=== PATIENT | female | born 1980 | race African-American/Black ===

== ENCOUNTER 2017-03-21 08:09 | Emergency (ER) | payer SELFPAY ==
[~2017-03-21 08:09] MED LIST: CIPR-9 PO; HYDR-3516 PO; LEXA10TA PO; TOPA25TA8 PO
[2017-03-21 08:11] VITALS: BP 122/73; PULSE 59; RESP 18; TEMP 98.4; O2SAT 99
[2017-03-21] MEDS ORDERED: LIDOCAINE 1%/EPINEPHrine 1:100,000 SOLN 20 ML VIAL INFIL ONE (08:30)
--- NOTE | 2017-03-21 08:41 | PD ---
HPI Chief Complaint: Skin Problem Time Seen by Provider: 08:15 Travel History International Travel<30 days: No Contact w/Intl Traveler<30days: No Traveled to known affect area: No History of Present Illness HPI 37-year-old Afro[place] female presents the emergency Department with painful swollen area to the left radial wrist which is gotten worse in the past several days. Patient has history of recurrent abscesses and MRSA. Patient denies IV drug abuse, but medical history shows history of overdose. Patient denies significant fever but has had chills and not feeling well in the past 24 hours. Patient's pain is 8 out of 10. Patient has history of MRSA. She has no known drug allergies. PFSH Past Medical History Asthma: No Blood Disorders: No Anxiety: Yes Depression: Yes Heart Rhythm Problems: No Cancer: No Cardiovascular Problems: No High Cholesterol: No Chemotherapy: No Chest Pain: No Congestive Heart Failure: No COPD: No Diabetes: No Diminished Hearing: No Endocrine: No Gastrointestinal Disorders: No Genitourinary: No Headaches: Yes Immune Disorder: No Musculoskeletal: No Neurologic: Yes (migraines and seizures) Psychiatric: Yes Reproductive: No Respiratory: No Migraines: Yes Radiation Therapy: No Seizures: Yes (LAST SEIZURE 05/26) Sleep Apnea: No Thyroid Disease: No : 1 Para: 1 Miscarriage: 0 : 0 Past Surgical History Section: No Joint Replacement: No Other Surgery: Yes (BREAST REDUCTION 2003, SINUS SURGERY 2002) Social History Alcohol Use: Yes (reports having wine this evening.) Tobacco Use: Yes (1/2 PPD) Substance Use: No Allergies-Medications (Allergen,Severity, Reaction): Coded Allergies: *MDRO Multi-Drug Resistant Organism (Unverified Allergy, Unknown, 08/04/16 ) MRSA (neck wound-07/12/14) MRSA PCR screen POSITIVE 08/03/16 Reported Meds & Prescriptions Reported Meds & Active Scripts Active Ibuprofen 600 Mg Tab 600 Mg PO Q6H PRN Bactrim DS (Sulfamethoxazole-Trimethoprim) 800-160 Mg Tab 1 Tab PO BID Reported Topamax (Topiramate) 25 Mg Tab 25 Mg PO BID Review of Systems Except as stated in HPI: all other systems reviewed are Neg General / Constitutional: Positive: Chills, No: Fever Eyes: No: Visual changes HENT: No: Headaches Cardiovascular: No: Chest Pain or Discomfort Respiratory: No: Shortness of Breath Gastrointestinal: No: Abdominal Pain Genitourinary: No: Dysuria Musculoskeletal: No: Pain Skin: Positive Lesions (see history present illness), No Rash Neurologic: No: Weakness Psychiatric: No: Depression Endocrine: No: Polydipsia Hematologic/Lymphatic: No: Easy Bruising Physical Exam Narrative GENERAL: Patient appears in mild distress. SKIN: Warm and dry. Normal color. Normal turgor. There is no indurated raised obvious abscess to the lateral radial wrist consistent with abscess. There is mild erythema. There is no lymphangitis or streaking. There is no pointing or spontaneous drainage. The area measures 1 cm x 3 cm oblong fashion. HEAD: Atraumatic. Normocephalic. EYES: Pupils equal and round. No scleral icterus. No injection or drainage. ENT: No nasal bleeding or discharge. Mucous membranes pink and moist. Pharynx is clear. Airway is patent NECK: Trachea midline. Supple and nontender. CARDIOVASCULAR: Regular rate and rhythm. RESPIRATORY: No accessory muscle use. Clear to auscultation. Breath sounds equal bilaterally. MUSCULOSKELETAL: Extremities without clubbing, cyanosis, or edema. No obvious deformities. NEUROLOGICAL: Awake and alert. No obvious cranial nerve deficits. Motor grossly within normal limits. Five out of 5 muscle strength in the arms and legs. Normal speech. PSYCHIATRIC: Appropriate mood and affect; insight and judgment normal. Data Data Last Documented VS Vital Signs Date Time Temp Pulse Resp B/P Pulse Ox O2 Delivery O2 Flow Rate FiO2 03/21/17 08:11 98.4 59 18 122/73 99 Orders Lidocai-Epi 1%-1:100,000 Inj (Xylocaine- (03/21/17 08:30) Wound Culture And Gram Stain (03/21/17 08:38) [facility] Medical Decision Making Medical Screen Exam Complete: Yes Emergency Medical Condition: Yes Medical Record Reviewed: Yes Differential Diagnosis Left wrist cellulitis. Left wrist abscess. MRSA. Narrative Course Patient is medically stable at time of exam. I&D of abscess is performed on the left wrist. Culture is sent to the lab. Patient is treated with Bactrim DS twice a day 10 days. Patient is given ibuprofen 600 mg 4 times a day #40. Patient to return in 2 days for wound check and packing removal. Procedures Procedure Narrative After the risks and benefits were discussed the following procedure was performed: INCISION AND DRAINAGE OF ABSCESS: The area was prepped and was sterilely draped. A subcutaneous wheal of 1 % Xylocaine with epi with a total number 2.5 mL was used to anesthetize the area. The area was properly anesthetized. A number 11 scalpel was used to make a 0.5-cm incision across the area of the abscess. Cultures were obtained. The abscess was drained an irrigated with normal saline. Quarter inch iodoform packing was placed in the wound. Sterile dressing applied. Patient advised to have packing removed in two days. Diagnosis Primary Impression: Abscess Referrals: [facility] Patient Instructions: Abscess Incision and Drainage (ED), General Instructions Departure Forms: Work Release Special Instructions: Limited use of left wrist until cleared medically. Must keep dressing clean and dry. Additional Instructions: Patient is medically stable at time of exam. I&D of abscess is performed on the left wrist. Culture is sent to the lab. Patient is treated with Bactrim DS twice a day 10 days. Patient is given ibuprofen 600 mg 4 times a day #40. Patient to return in 2 days for wound check and packing removal. Med/Other Pt SpecificInfo: Prescription(s) given Scripts Ibuprofen 600 Mg Sxl500 Mg PO Q6H PRN (Pain/Inflammation) #40 TAB Prov:Jcarlos Carpio MD 03/21/17 Sulfamethoxazole-Trimethoprim (Bactrim DS)800-160 Mg Tab1 Tab PO BID #20 TAB Prov:Jcarlos Carpio MD 03/21/17 Disposition: 01 DISCHARGE HOME Condition: Stable Otto Haley Mar 21, 2017 08:41
[2017-03-21] MEDS ORDERED: IBUP-232 PO (08:42)
[2017-03-21] MEDS ORDERED: BACT800T5 PO (08:42)
[2017-03-21] MEDS ORDERED: ACETAMINOPHEN 500 MG CPLT PO ONE (09:00)
[2017-03-21] MEDS ORDERED: IBUPROFEN 600 MG TAB PO ONE (09:00)
== END 2017-03-21 09:08 | disposition home or self-care (01) ==
LOC: NEPK 08:09
DX: L02.414 Cutaneous abscess of left upper limb (principal); B96.3 Hemophilus influenzae [H. influenzae] as the cause of diseases classified elsewhere; B96.89 Other specified bacterial agents as the cause of diseases classified elsewhere
CPT/HCPCS: 10060; 87070; 87077; 87185; 87186

== ENCOUNTER 2017-10-11 23:57 | Emergency (ER) | payer SELFPAY ==
[~2017-10-11] VITALS: Ht 170.2 cm; Wt 66.0 kg
[~2017-10-11 23:57] MED LIST changes: +BACT800T5 PO; -CIPR-9 PO; -HYDR-3516 PO; +IBUP-232 PO; -LEXA10TA PO; -TOPA25TA8 PO; +TOPI25 PO
[2017-10-12] VITALS: BP 126/60; PULSE 100; RESP 16; TEMP 98.4; O2SAT 100
[2017-10-12] MEDS ORDERED: BACT800T5 PO (00:35)
[2017-10-12] MEDS ORDERED: CEPH-460 PO (00:35)
[2017-10-12] MEDS ORDERED: SULFAMETHOXAZOLE-TRIMETHOPRIM DS 800-160 MG TAB PO ONE (00:45)
[2017-10-12] MEDS ORDERED: CEPHALEXIN MONOHYDRATE 500 MG CAP PO ONE (00:45)
--- NOTE | 2017-10-12 00:49 | PD ---
HPI Chief Complaint: Lump, Cyst, Hernia Time Seen by Provider: 00:31 Travel History International Travel<30 days: No Contact w/Intl Traveler<30days: No Traveled to known affect area: No History of Present Illness HPI 37-year-old black female presents to emergency department with complains of a abscess to her left wrist over last few days. She states that she's had a history of abscesses in the past. She has a history of IV substance abuse although she denies any recent use. She denies any fever or chills. No numbness, tingling or weakness. Symptoms are mild. No alleviating factors. Exacerbated by IV drug abuse PFSH Past Medical History Asthma: No Blood Disorders: No Anxiety: Yes Depression: Yes Diminished Hearing: No Headaches: Yes Neurologic: Yes Psychiatric: Yes Migraines: Yes Seizures: Yes (LAST SEIZURE 05/26) Tetanus Vaccination: < 5 Years ?: Not : 1 Para: 1 Miscarriage: 0 : 0 Past Surgical History Section: No Cholecystectomy: Yes Joint Replacement: No Other Surgery: Yes (breast reduction sx and sinue surgery) Social History Alcohol Use: No Tobacco Use: Yes (1PPD) Substance Use: No Allergies-Medications (Allergen,Severity, Reaction): Coded Allergies: *MDRO Multi-Drug Resistant Organism (Unverified Allergy, Unknown, 10/12/17) MRSA (neck wound-07/12/14) MRSA PCR screen POSITIVE 08/03/16 Reported Meds & Prescriptions Reported Meds & Active Scripts Active Keflex (Cephalexin) 500 Mg Cap 500 Mg PO Q6H 10 Days Bactrim DS (Sulfamethoxazole-Trimethoprim) 800-160 Mg Tab 1 Tab PO BID Ibuprofen 600 Mg Tab 600 Mg PO Q6H PRN Bactrim DS (Sulfamethoxazole-Trimethoprim) 800-160 Mg Tab 1 Tab PO BID Reported Topamax (Topiramate) 25 Mg Tab 25 Mg PO BID Review of Systems Except as stated in HPI: all other systems reviewed are Neg Musculoskeletal: Positive: Pain Skin: Positive Rash, Positive Lumps Physical Exam Narrative GENERAL: This is a well-nourished, well-developed patient, in no apparent distress. SKIN: 1.5 x 1.5 cm tender nodular lesion over the dorsal radial wrist. It is tender. There is no fluctuance or pointing. I suspect that this is a superficial abscess and not a ganglion cyst. It is just before the wrist and not over the joint. HEAD: Atraumatic. Normocephalic. EYES: PERRL, EOMI, no discharge or injection. No scleral icterus. EARS: Clear NOSE: Nasal turbinates appear normal. THROAT: Mucosa pink and moist. Airway patent. NECK: Trachea midline. supple, moves head freely. LUNGS: Clear to auscultation. CV: Regular in rhythm. ABDOMEN: Soft nontender. EXT: No clubbing cyanosis or edema. Data Data Last Documented VS Vital Signs Date Time Temp Pulse Resp B/P (MAP) Pulse Ox O2 Delivery O2 Flow Rate FiO2 10/12/17 00:00 98.4 100 16 126/60 (82) 100 Room Air Orders Orders Ed Discharge Order (10/12/17 00:33) Cephalexin (Keflex) (10/12/17 00:45) Sulfamet-Trimeth Ds 800-160 Mg (Bactrim (10/12/17 00:45) MDM Medical Decision Making Medical Screen Exam Complete: Yes Emergency Medical Condition: Yes Medical Record Reviewed: Yes Differential Diagnosis MDM: High Differential diagnoses: Abscess, folliculitis, cellulitis, lymphangitis, abrasion, contact dermatitis Narrative Course A needle aspiration has been performed. Patient's given Bactrim DS and Keflex 500 mg by mouth. Procedures Procedure Narrative Needle aspiration left dorsal wrist abscess: The skin is prepped with Hibiclens. The skin is anesthetized using 1% lidocaine. After adequate anesthesia and 18-gauge needle is used to withdrawal 2 cc of bloody pus. Dressings applied. Patient tolerated procedure well without complications. Diagnosis Primary Impression: left wrist abscess Patient Instructions: General Instructions Additional Instructions: Rest. Elevation. keep clean and dry. Warm compresses. Daily wound care with soap, water and Neosporin. Three Advil every 6 hours. Bactrim DS and Keflex.. Follow-up with a primary care doctor in 3-5 days. Return to the ER for any problems. Med/Other Pt SpecificInfo: Prescription(s) given Scripts Cephalexin (Keflex) 500 Mg Cap 500 MG PO Q6H for Infection for 10 Days, #40 CAP 0 Refills Prov: Selvin Brown MD 10/12/17 Sulfamethoxazole-Trimethoprim (Bactrim DS) 800-160 Mg Tab 1 TAB PO BID for Infection, #20 TAB 0 Refills Prov: Selvin Brown MD 10/12/17 Disposition: 01 DISCHARGE HOME Condition: Stable Conor Ellis Oct 12, 2017 00:49
== END 2017-10-12 01:16 | disposition home or self-care (01) ==
LOC: NEPD 23:57
DX: L02.414 Cutaneous abscess of left upper limb (principal)
CPT/HCPCS: 10160; 99283

== ENCOUNTER 2017-11-16 20:51 | Emergency (ER) | payer SELFPAY ==
[~2017-11-16] VITALS: Ht 167.6 cm; Wt 66.0 kg
[2017-11-16 22:07] VITALS: BP 134/71; PULSE 106; RESP 16; TEMP 98.4; O2SAT 100
[2017-11-16 22:46] LABS: BACTERIA, URINE OCC /hpf; BILIRUBIN, URINE NEG (NEG); BLOOD, URINE LARGE (NEG); GLUCOSE,URINE NEG (NEG); HYALINE CAST, URINE 4 /lpf (RARE); KETONE, URINE NEG (NEG); MUCUS URINE MANY /lpf (OCC); NITRITE,URINE NEG (NEG); PH, URINE 5.5 (5.0-8.5); SQUAMOUS EPITHELIAL CELL URINE 2 /hpf (0-5); URINE LEUKOCYTE ESTERASE LARGE (NEG); WHITE BLOOD CELL CLUMPS RARE
[2017-11-16 22:47] LABS: URINE COLOR LIGHT-RED (YELLW/STRAW)
--- NOTE | 2017-11-16 23:03 | PD ---
HPI Chief Complaint: Back/ Neck Pain or Injury Time Seen by Provider: 22:55 Travel History International Travel<30 days: No Contact w/Intl Traveler<30days: No Traveled to known affect area: No History of Present Illness HPI Is a 37-year-old woman who presents to the emergency department plan of left- sided flank pain is been ongoing for the past week or so, fairly constant with some waxing and waning episodes, so she with dark urine, nausea vomiting. No fevers or chills. A little bit of dysuria. No vaginal discharge. Also flares about 3 weeks ago was normal. She has no history of bladder infections, pyelonephritis, or ureterolithiasis. Although, she has been told in the past that she had kidney stones on CT scan, but is never passed any. She takes medicine for seizures. No other complaints. History Past Medical History Narrative Medical Seizures Tetanus Vaccination: > 5 Years Influenza Vaccination: Yes LMP: 10/20/17 : 1 Para: 1 Social History Alcohol Use: No Tobacco Use: Yes (08/22 PPD) Allergies-Medications (Allergen,Severity, Reaction): Coded Allergies: *MDRO Multi-Drug Resistant Organism (Unverified Allergy, Unknown, 10/12/17) MRSA (neck wound-07/12/14) MRSA PCR screen POSITIVE 08/03/16 Reported Meds & Prescriptions Reported Meds & Active Scripts Active Percocet (Oxycodone-Acetaminophen) 5-325 mg Tab 1-2 Tab PO Q6H PRN Naproxen 500 Mg Tab 500 Mg PO BID Ondansetron Odt 4 Mg Tab 4 Mg SL Q8HR PRN Keflex (Cephalexin) 500 Mg Cap 500 Mg PO Q8H Reported Topamax (Topiramate) 25 Mg Tab 25 Mg PO BID Review of Systems Except as stated in HPI: all other systems reviewed are Neg Physical Exam Narrative GENERAL: 37-year-old woman, appears uncomfortable but nontoxic. SKIN: Focused skin assessment warm/dry. HEAD: Atraumatic. Normocephalic. EYES: Pupils equal and round. No scleral icterus. No injection or drainage. ENT: No nasal bleeding or discharge. Mucous membranes pink and moist. NECK: Trachea midline. No JVD. CARDIOVASCULAR: Regular rate and rhythm. No murmur appreciated. RESPIRATORY: No accessory muscle use. Clear to auscultation. Breath sounds equal bilaterally. GASTROINTESTINAL: Abdomen soft. She has left-sided CVA tenderness to percussion , as well as some moderate left-sided tenderness to palpation. MUSCULOSKELETAL: No obvious deformities. No clubbing. No cyanosis. No edema. NEUROLOGICAL: Awake and alert. No obvious cranial nerve deficits. Motor grossly within normal limits. Normal speech. PSYCHIATRIC: Appropriate mood and affect; insight and judgment normal. Data Data Last Documented VS Vital Signs Date Time Temp Pulse Resp B/P (MAP) Pulse Ox O2 Delivery O2 Flow Rate FiO2 11/16/17 22:07 98.4 106 16 134/71 (92) 100 Orders Orders Urinalysis - C+S If Indicated (11/16/17 22:25) Ed Urine Pregnancytest Poc (11/16/17 22:25) Urine Culture (11/16/17 22:25) Ct Abd/Pel W/O Iv Contrast (11/16/17 ) Complete Blood Count With Diff (11/16/17 23:01) Comprehensive Metabolic Panel (11/16/17 23:01) Iv Access Insert/Monitor (11/16/17 23:01) Ketorolac Inj (Toradol Inj) (11/16/17 23:15) Ondansetron Inj (Zofran Inj) (11/16/17 23:15) Sodium Chlor 0.9% 1000 Ml Inj (Ns 1000 M (11/16/17 23:15) Ed Discharge Order (11/17/17 00:40) Ceftriaxone Inj (Rocephin Inj) (11/17/17 00:45) Labs Laboratory Tests Test 11/16/17 22:25 11/16/17 23:30 Urine Color LIGHT-RED Urine Turbidity CLOUDY Urine pH 5.5 Urine Specific [place] 1.020 Urine Protein 100 mg/dL Urine Glucose (UA) NEG mg/dL Urine Ketones NEG mg/dL Urine Occult Blood LARGE Urine Nitrite NEG Urine Bilirubin NEG Urine Urobilinogen LESS THAN 2.0 MG/DL Urine Leukocyte Esterase LARGE Urine RBC /hpf Urine WBC /hpf Urine WBC Clumps RARE Urine Squamous Epithelial Cells 2 /hpf Urine Bacteria OCC /hpf Urine Hyaline Casts 4 /lpf Urine Mucus MANY /lpf Microscopic Urinalysis Comment CULTURE INDICATED White Blood Count 8.6 TH/MM3 Red Blood Count 4.34 MIL/MM3 Hemoglobin 12.6 GM/DL Hematocrit 35.1 % Mean Corpuscular Volume 80.9 FL Mean Corpuscular Hemoglobin 29.2 PG Mean Corpuscular Hemoglobin Concent 36.0 % Red Cell Distribution Width 13.4 % Platelet Count 258 TH/MM3 Mean Platelet Volume 8.1 FL Neutrophils (%) (Auto) 59.8 % Lymphocytes (%) (Auto) 30.4 % Monocytes (%) (Auto) 7.6 % Eosinophils (%) (Auto) 1.9 % Basophils (%) (Auto) 0.3 % Neutrophils # (Auto) 5.1 TH/MM3 Lymphocytes # (Auto) 2.6 TH/MM3 Monocytes # (Auto) 0.7 TH/MM3 Eosinophils # (Auto) 0.2 TH/MM3 Basophils # (Auto) 0.0 TH/MM3 CBC Comment AUTO DIFF Differential Comment AUTO DIFF CONFIRMED Platelet Estimate NORMAL Platelet Morphology Comment NORMAL Red Cell Morphology Comment NORMAL Blood Urea Nitrogen 22 MG/DL Creatinine 0.91 MG/DL Random Glucose 82 MG/DL Total Protein 7.9 GM/DL Albumin 3.5 GM/DL Calcium Level 8.7 MG/DL Alkaline Phosphatase 65 U/L Aspartate Amino Transf (AST/SGOT) 19 U/L Alanine Aminotransferase (ALT/SGPT) 20 U/L Total Bilirubin 0.4 MG/DL Sodium Level 135 MEQ/L Potassium Level 3.7 MEQ/L Chloride Level 102 MEQ/L Carbon Dioxide Level 26.3 MEQ/L Anion Gap 7 MEQ/L Estimat Glomerular Filtration Rate 83 ML/MIN [facility] Medical Decision Making Medical Screen Exam Complete: Yes Emergency Medical Condition: Yes Interpretation(s) LABS: CBC is unremarkable. CMP is unremarkable. UA with innumerable red blood cells, innumerable white blood cells CT abdomen pelvis: Certain left renal pelvis is probably intermittently obstructing. Differential Diagnosis Renal lithiasis, UTI, kidney stones, enteritis, other Narrative Course Medical decision making Is a 37-year-old woman presents emerged department left-sided abdominal pain, she has tenderness and hematuria suggestive either pyelonephritis, or nephrolithiasis. Will check labs, urine, CT, will give Zofran Toradol IV fluids , reassess. FINAL: 37-year-old woman with a large renal stone that intermittently obstructing. No evidence of severe infection with fevers or leukocytosis however she does have a fair amount of pyuria. Will recommend IV antibiotics, outpatient follow-up with urology. Will placement to her referral. Diagnosis Primary Impression: Renal stone Patient Instructions: General Instructions Additional Instructions: Take antibiotics as prescribed. Take Naprosyn as needed for pain. Take Percocet as needed for severe pain. The Zofran as needed for nausea or vomiting. Follow-up with Dr. Alex at the first available appointment. Return to the emergency department for any worsening pain, any fevers, or any other new or worsening symptoms. Med/Other Pt SpecificInfo: Prescription(s) given Scripts Oxycodone-Acetaminophen (Percocet) 5-325 mg Tab 1-2 TAB PO Q6H Y for PAIN, #21 TAB 0 Refills Prov: Lencho Bautista MD 11/17/17 Naproxen (Naproxen) 500 Mg Tab 500 MG PO BID, #60 TAB 0 Refills Prov: Lencho Bautista MD 11/17/17 Ondansetron Odt (Ondansetron Odt) 4 Mg Tab 4 MG SL Q8HR Y for Nausea/Vomiting, #30 TAB 0 Refills Prov: Lencho Bautista MD 11/17/17 Cephalexin (Keflex) 500 Mg Cap 500 MG PO Q8H for Infection, #30 CAP 0 Refills Prov: Lencho Bautista MD 11/17/17 Disposition: 01 DISCHARGE HOME Condition: Stable Lencho Bautista MD Nov 16, 2017 23:03
[2017-11-16] MEDS ORDERED: KETOROLAC TROMETHAMINE 30 MG/ML (IVP) VIAL IV PUSH ONE (23:15)
[2017-11-16] MEDS ORDERED: ONDANSETRON HCL 4 MG/2 ML VIAL IV PUSH ONE (23:15)
[2017-11-16] MEDS ORDERED: SODIUM CHLOR 0.9% 1000 ML INJ 1,000 ML IV ONE (23:15)
--- NOTE | 2017-11-16 23:29 | RADRPT ---
EXAM DATE/TIME: 11/16/2017 23:15 [place] COMPARISON: CT ABDOMEN & PELVIS W/O CONTRAST, August 06, 2016, 12:03. INDICATIONS : Left flank pain. ORAL CONTRAST: No oral contrast ingested. RADIATION DOSE: 6.79 CTDIvol (mGy) MEDICAL HISTORY : None SURGICAL HISTORY : Cholecystectomy. ENCOUNTER: Initial ACUITY: 1 week PAIN SCALE: 7/10 LOCATION: Left flank TECHNIQUE: Volumetric scanning of the abdomen and pelvis was performed. Using automated exposure control and ad justment of the mA and/or kV according to patient size, radiation dose was kept as low as reasonably achievable to obtain optimal diagnostic quality images. DICOM format image data is available electro nically for review and comparison. FINDINGS: There is an 8 x 12 x 13 mm stone in the left renal pelvis. Mild to moderate hydronephrosis is present . No ureteral calculus or hydroureter. Noncontrast appearance of the right kidney within normal limit s. Antrum cholecystectomy. Noncontrast appearance of the liver, spleen, pancreas and adrenal glands with in normal limits. No obstruction or acute inflammatory changes of the gastrointestinal tract. No free fluid. CONCLUSION: Large stone in the left renal pelvis that is probably intermittently/paroxysmally obstructing. Dimitris Banuelos MD on November 16, 2017 at 23:25 Board Certified Radiologist. This report was verified electronically.
[2017-11-16 23:54] LABS: AUTOMATED NEUTROPHIL # 5.1 TH/MM3 (1.8-7.7); BASOPHIL % 0.3 % (0.0-2.0); EOSINOPHIL # 0.2 TH/MM3 (0-0.4); EOSINOPHIL % 1.9 % (0.0-4.0); HEMATOCRIT 35.1 % (35.0-46.0); HEMOGLOBIN 12.6 GM/DL (11.6-15.3); LYMPH % 30.4 % (9.0-44.0); LYMPHOCYTE # 2.6 TH/MM3 (1.0-4.8); MEAN CELL VOLUME 80.9 FL (80.0-100.0); MEAN CORPUSCULAR HEMOGLOBIN 29.2 PG (27.0-34.0); MEAN PLATELET VOLUME 8.1 FL (7.0-11.0); MONO % 7.6 % (0.0-8.0); MONOCYTE # 0.7 TH/MM3 (0-0.9); NEUT % 59.8 % (16.0-70.0); PLATELET COUNT 258 TH/MM3 (150-450); RED BLOOD COUNT 4.34 MIL/MM3 (4.00-5.30); RED CELL DISTRIBUTION WIDTH 13.4 % (11.6-17.2); WHITE BLOOD COUNT 8.6 TH/MM3 (4.0-11.0)
[2017-11-17 00:11] LABS: ALBUMIN 3.5 GM/DL (3.4-5.0); ALT (GPT) 20 U/L (10-53); AST (GOT) 19 U/L (15-37); BICARBONATE 26.3 MEQ/L (21.0-32.0); BLOOD UREA NITROGEN 22 MG/DL (7-18); CALCIUM 8.7 MG/DL (8.5-10.1); CHLORIDE 102 MEQ/L (98-107); CREATININE 0.91 MG/DL (0.50-1.00); GLOMERULAR FILTRATION RATE 83 ML/MIN (>89); GLUCOSE,RANDOM 82 MG/DL (74-106); SODIUM (NA) 135 MEQ/L (136-145)
[2017-11-17 00:13] LABS: ALKALINE PHOSPHATASE 65 U/L (45-117); TOTAL BILIRUBIN ADULT 0.4 MG/DL (0.2-1.0); TOTAL PROTEIN 7.9 GM/DL (6.4-8.2)
[2017-11-17] MEDS ORDERED: TOPI25 PO (00:21)
[2017-11-17] MEDS ORDERED: CEPH-460 PO (00:40)
[2017-11-17] MEDS ORDERED: NAPR500T2 PO (00:40)
[2017-11-17] MEDS ORDERED: ONDA4TAB7 SL (00:40)
[2017-11-17] MEDS ORDERED: PERC5TAB12 PO (00:40)
[2017-11-17] MEDS ORDERED: cefTRIAXone INJ 1,000 MG in SODIUM CHLORIDE 0.9% INJ 100 ML IV ONE (00:45)
[2017-11-17] MEDS ORDERED: oxyCODONE/ACETAMINOPHEN 5 MG/325 MG TAB PO ONE (01:15)
[2017-11-17] MEDS ORDERED: NAPROXEN 500 MG TAB PO ONE (01:15)
== END 2017-11-17 01:31 | disposition home or self-care (01) ==
LOC: NEPE 20:51
DX: N20.0 Calculus of kidney (principal); R11.2 Nausea with vomiting, unspecified; R30.0 Dysuria; B95.2 Enterococcus as the cause of diseases classified elsewhere; R56.9 Unspecified convulsions; F17.200 Nicotine dependence, unspecified, uncomplicated; Z79.899 Other long term (current) drug therapy
CPT/HCPCS: 74176; 80053; 81001; 84703; 85025; 87077; 87086; 87186; 96361; 96365; 96375; 99284; J0696; J1885; J2405; J7030

== ENCOUNTER 2018-01-11 10:36 | Emergency (ER) | payer SELFPAY ==
[~2018-01-11] VITALS: Ht 167.6 cm; Wt 70.2 kg
[~2018-01-11 10:36] MED LIST changes: -BACT800T5 PO; +CEPH-460 PO; -IBUP-232 PO; +NAPR500T2 PO; +ONDA4TAB7 SL; +PERC5TAB12 PO
[2018-01-11 10:45] VITALS: BP 145/68; PULSE 87; RESP 18; TEMP 98.5; O2SAT 99
[2018-01-11] MEDS ORDERED: SODIUM CHLOR 0.9% 1000 ML INJ 1,000 ML IV SCH (12:04)
--- NOTE | 2018-01-11 12:07 | PD ---
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 Patient states she was feeling better after she left her last month and then the pain somewhat returned. States started last night, left flank, no radiation, associated with blood in the urine. Patient states she has not been able to follow-up with a urologist yet because she has no insurance and cannot afford to do so. Mild nausea without vomiting, not associated with any fever. PFSH Past Medical History Asthma: No Blood Disorders: No Anxiety: No Depression: Yes Diminished Hearing: No Headaches: Yes Neurologic: Yes Psychiatric: Yes Migraines: Yes Radiation Therapy: No Seizures: Yes (LAST SEIZURE 06/2017) Tetanus Vaccination: Unknown Influenza Vaccination: Yes ?: Not LMP: 12/14/17 : 1 Para: 1 Miscarriage: 0 : 0 Past Surgical History Section: No Cholecystectomy: Yes Joint Replacement: No Other Surgery: Yes (breast reduction sx and sinue surgery) Social History Alcohol Use: No Tobacco Use: Yes (08/24 PPD) Substance Use: No Allergies-Medications (Allergen,Severity, Reaction): Coded Allergies: *MDRO Multi-Drug Resistant Organism (Unverified Allergy, Unknown, 01/11/18) MRSA (neck wound-07/12/14) MRSA PCR screen POSITIVE 08/03/16 Reported Meds & Prescriptions Reported Meds & Active Scripts Active Ultram (Tramadol HCl) 50 Mg Tab 50 Mg PO Q6H PRN Review of Systems Except as stated in HPI: all other systems reviewed are Neg Physical Exam Narrative GENERAL: Well-developed well-nourished in minimal discomfort peer SKIN: Focused skin assessment warm/dry. HEAD: Atraumatic. Normocephalic. EYES: Pupils equal and round. No scleral icterus. No injection or drainage. ENT: No nasal bleeding or discharge. Mucous membranes pink and moist. NECK: Trachea midline. No JVD. CARDIOVASCULAR: Regular rate and rhythm. No murmur appreciated. RESPIRATORY: No accessory muscle use. Clear to auscultation. Breath sounds equal bilaterally. GASTROINTESTINAL: Abdomen soft, non-tender, nondistended. Hepatic and splenic margins not palpable. No CVA tenderness, abdomen is benign, no rebound no percussive tenderness MUSCULOSKELETAL: No obvious deformities. No clubbing. No cyanosis. No edema. NEUROLOGICAL: Awake and alert. No obvious cranial nerve deficits. Motor grossly within normal limits. Normal speech. PSYCHIATRIC: Appropriate mood and affect; insight and judgment normal. Data Data Last Documented VS Vital Signs Date Time Temp Pulse Resp B/P (MAP) Pulse Ox O2 Delivery O2 Flow Rate FiO2 01/11/18 10:45 98.5 87 18 145/68 (93) 99 Orders Orders Complete Blood Count With Diff (01/11/18 12:04) Comprehensive Metabolic Panel (01/11/18 12:04) Urinalysis - C+S If Indicated (01/11/18 12:04) Iv Access Insert/Monitor (01/11/18 12:04) Ecg Monitoring (01/11/18 12:04) Oximetry (01/11/18 12:04) Sodium Chlor 0.9% 1000 Ml Inj (Ns 1000 M (01/11/18 12:04) Sodium Chloride 0.9% Flush (Ns Flush) (01/11/18 12:15) Ketorolac Inj (Toradol Inj) (01/11/18 12:15) Ed Urine Pregnancytest Poc (01/11/18 12:04) Ondansetron Odt (Zofran Odt) (01/11/18 12:15) Us Kidney/Renal/Bladder (01/11/18 12:31) Urine Culture (01/11/18 12:20) Mandatory Outpatient Referral (01/11/18 14:57) Ed Discharge Order (01/11/18 14:59) Labs Laboratory Tests Test 01/11/18 12:20 White Blood Count 6.1 TH/MM3 Red Blood Count 4.82 MIL/MM3 Hemoglobin 13.0 GM/DL Hematocrit 39.6 % Mean Corpuscular Volume 82.0 FL Mean Corpuscular Hemoglobin 27.0 PG Mean Corpuscular Hemoglobin Concent 32.9 % Red Cell Distribution Width 15.6 % Platelet Count 247 TH/MM3 Mean Platelet Volume 8.1 FL Neutrophils (%) (Auto) 60.4 % Lymphocytes (%) (Auto) 31.1 % Monocytes (%) (Auto) 6.9 % Eosinophils (%) (Auto) 1.1 % Basophils (%) (Auto) 0.5 % Neutrophils # (Auto) 3.7 TH/MM3 Lymphocytes # (Auto) 1.9 TH/MM3 Monocytes # (Auto) 0.4 TH/MM3 Eosinophils # (Auto) 0.1 TH/MM3 Basophils # (Auto) 0.0 TH/MM3 CBC Comment DIFF FINAL Differential Comment Urine Color YELLOW Urine Turbidity HAZY Urine pH 6.0 Urine Specific [place] 1.019 Urine Protein 100 mg/dL Urine Glucose (UA) NEG mg/dL Urine Ketones NEG mg/dL Urine Occult Blood LARGE Urine Nitrite NEG Urine Bilirubin NEG Urine Urobilinogen 2.0 MG/DL Urine Leukocyte Esterase LARGE Urine RBC /hpf Urine WBC /hpf Urine Squamous Epithelial Cells 2 /hpf Urine Bacteria FEW /hpf Urine Mucus FEW /lpf Microscopic Urinalysis Comment CULTURE INDICATED Blood Urea Nitrogen 11 MG/DL Creatinine 0.79 MG/DL Random Glucose 96 MG/DL Total Protein 7.9 GM/DL Albumin 3.5 GM/DL Calcium Level 8.8 MG/DL Alkaline Phosphatase 89 U/L Aspartate Amino Transf (AST/SGOT) 13 U/L Alanine Aminotransferase (ALT/SGPT) 17 U/L Total Bilirubin 0.5 MG/DL Sodium Level 138 MEQ/L Potassium Level 3.8 MEQ/L Chloride Level 103 MEQ/L Carbon Dioxide Level 27.0 MEQ/L Anion Gap 8 MEQ/L Estimat Glomerular Filtration Rate 98 ML/MIN MDM Medical Decision Making Medical Screen Exam Complete: Yes Emergency Medical Condition: Yes Differential Diagnosis Kidney stone, hydronephrosis, acute kidney injury, UTI. Narrative Course 37-year-old female room to the emergency department, review of her previous CAT scan does show a 1.3 cm renal pelvic kidney stone which apparently may have been intermittently obstructing. Patient only has minimal hydronephrosis today which is probably comparable to her previous CAT scan. Creatinine within normal limits, urine leukocyte esterase positive but probably from blood. She was given pain medicine is feeling somewhat better but not 100%. Discussed follow-up with urologist, the patient also met with patient assistance and amendatory referral has been placed for her, discussed return to ED criteria. She is stable for discharge Diagnosis Primary Impression: Kidney stone Med/Other Pt SpecificInfo: Prescription(s) given Scripts Tramadol (Ultram) 50 Mg Tab 50 MG PO Q6H Y for PAIN, #15 TAB 0 Refills Prov: Jcarlos Carpio MD 01/11/18 Disposition: 01 DISCHARGE HOME Condition: Stable Jcarlos Carpio MD January 11, 2018 12:07
[2018-01-11] MEDS ORDERED: KETOROLAC TROMETHAMINE 30 MG/ML (IVP) VIAL IVP ONE (12:15)
[2018-01-11] MEDS ORDERED: SODIUM CHLORIDE 0.9% FLUSH 10 ML FLUSH IV FLUSH PRN (12:15)
[2018-01-11] MEDS ORDERED: ONDANSETRON ODT 4 MG TAB PO ONE (12:15)
[2018-01-11 12:44] LABS: AUTOMATED NEUTROPHIL # 3.7 TH/MM3 (1.8-7.7); BASOPHIL % 0.5 % (0.0-2.0); EOSINOPHIL # 0.1 TH/MM3 (0-0.4); EOSINOPHIL % 1.1 % (0.0-4.0); HEMATOCRIT 39.6 % (35.0-46.0); LYMPH % 31.1 % (9.0-44.0); LYMPHOCYTE # 1.9 TH/MM3 (1.0-4.8); MEAN CORPUSCULAR HGB CONC 32.9 % (32.0-36.0); MEAN PLATELET VOLUME 8.1 FL (7.0-11.0); MONO % 6.9 % (0.0-8.0); MONOCYTE # 0.4 TH/MM3 (0-0.9); NEUT % 60.4 % (16.0-70.0); PLATELET COUNT 247 TH/MM3 (150-450); RED BLOOD COUNT 4.82 MIL/MM3 (4.00-5.30); RED CELL DISTRIBUTION WIDTH 15.6 % (11.6-17.2); WHITE BLOOD COUNT 6.1 TH/MM3 (4.0-11.0)
[2018-01-11 12:49] LABS: BACTERIA, URINE FEW /hpf; BILIRUBIN, URINE NEG (NEG); BLOOD, URINE LARGE (NEG); GLUCOSE,URINE NEG (NEG); KETONE, URINE NEG (NEG); MUCUS URINE FEW /lpf (OCC); NITRITE,URINE NEG (NEG); SQUAMOUS EPITHELIAL CELL URINE 2 /hpf (0-5); URINE COLOR YELLOW (YELLW/STRAW); URINE LEUKOCYTE ESTERASE LARGE (NEG)
[2018-01-11 13:02] LABS: ALBUMIN 3.5 GM/DL (3.4-5.0); ALT (GPT) 17 U/L (10-53); AST (GOT) 13 U/L (15-37); BLOOD UREA NITROGEN 11 MG/DL (7-18); CALCIUM 8.8 MG/DL (8.5-10.1); CHLORIDE 103 MEQ/L (98-107); CREATININE 0.79 MG/DL (0.50-1.00); GLOMERULAR FILTRATION RATE 98 ML/MIN (>89); GLUCOSE,RANDOM 96 MG/DL (74-106); SODIUM (NA) 138 MEQ/L (136-145)
[2018-01-11 13:03] LABS: ALKALINE PHOSPHATASE 89 U/L (45-117); TOTAL BILIRUBIN ADULT 0.5 MG/DL (0.2-1.0); TOTAL PROTEIN 7.9 GM/DL (6.4-8.2)
--- NOTE | 2018-01-11 14:51 | RADRPT ---
EXAM DATE: 01/11/2018 2:30 PM EDT AGE/SEX: 37 years / Female INDICATIONS: Hydronephrosis. Left flank pain. CLINICAL DATA: This is the patient's subsequent encounter. Patient reports that signs and symptoms h ave been present for 2 months and indicates a pain score of 6/10. MEDICAL/SURGICAL HISTORY: . Left kidney stone. . Cholecystectomy. Breast reduction. Sinus surgery. [place] [facility] [place]16/2017. . MEASUREMENTS: Right Kidney:__11.8 x 5.2 x 4.7 cm Left Kidney:__12.2 x 4.6 x 5.8 cm FINDINGS: Right Kidney: Normal echogenicity without evidence for hydronephrosis, renal calculus or mass. Left Kidney: 1.3 cm hyperechoic shadowing calculus in the inferior pole. Mild prominence of the centr al collecting system similar to prior exam. Bladder: Bladder is decompressed. CONCLUSION: 1. 13 mm calculus in the inferior pole of the left kidney with associated mild left-sided hydronephr osis. Electronically signed by: Dorian Ruiz MD 01/11/2018 2:50 PM EDT
[2018-01-11] MEDS ORDERED: TRAM50 PO (15:38)
== END 2018-01-11 15:43 | disposition home or self-care (01) ==
LOC: NEPD 10:36
DX: N13.2 Hydronephrosis with renal and ureteral calculous obstruction (principal); N39.0 Urinary tract infection, site not specified; B95.2 Enterococcus as the cause of diseases classified elsewhere; F17.210 Nicotine dependence, cigarettes, uncomplicated; F32.9 Major depressive disorder, single episode, unspecified; Z87.442 Personal history of urinary calculi
CPT/HCPCS: 76775; 80053; 81001; 84703; 85025; 87077; 87086; 87186; 96361; 96374; 99284; J1885; J7030

== ENCOUNTER 2018-06-06 21:40 | Observation (INO) ==
[2018-06-06] MEDS ORDERED: Ketorolac Inj 30 MG/ML (IVP) Vial IV.PUSH ONE (21:53)
[2018-06-06] MEDS ORDERED: Sod Chloride 0.9% Inj 1,000 ML IV.SIG SCH (22:00)
--- NOTE | 2018-06-06 22:08 | ED ---
HPI General Chief Complaint: Urogenital-Female Stated Complaint: poss bladder infection per the pt Time Seen by Provider: 06/06/18 21:53 Source: patient Mode of arrival: ambulatory Limitations: no limitations History of Present Illness HPI narrative: 38-year-old female with complaint of fever chills dysuria frequency urgency and left flank pain. Patient has history of recurrent kidney stones. Patient was seen May 09 for same complaint and diagnosed with left-sided kidney stone. Patient was given 10-day course of antibiotic Keflex and completed a course of antibiotic but did not follow-up with primary care provider or with urologist. Patient has had nausea without vomiting. Last period was normal for her April 30 and denies . Patient is taken no medications for pain. Present at this time because flank pain increases with ambulation. MD complaint: Reports flank pain Onset (ago): day(s) Pain Consistency: constant and colicky Location: Reports L flank Severity: similar to previous episodes Severity scale (1-10): 7 Quality: Reports cramping and dull Radiation: Reports LLQ Migration to: Reports no migration and LLQ Relieving factors: nothing Exacerbating factors: movement Context: Reports recent antibiotic use (05/09/18 x 10 days) and history of similar episodes; Denies foreign travel, possible food poisoning and sick contacts Associated symptoms: Reports nausea, fever (Subjective) and chills; Denies vomiting, diarrhea, dysuria, hematemesis, hematochezia, melena, hematuria, anorexia and syncope Treatments prior to arrival: Denies NSAIDs, prescription analgesics and antacids Related Data Date of Last Menstrual Period: 04/30/18 Patient : No Home Medications Medication Instructions Recorded Confirmed No Known Home Medications 06/06/18 06/06/18 Allergies Allergy/AdvReac Type Severity Reaction Status Date / Time No Known Allergies Allergy Verified 06/06/18 21:46 Review of Systems ROS: all other systems reviewed are negative [facility] Medical History Medical History Seizure (Acute) Surgical History Surgical History H/O sinus surgery (Acute) Hx of breast reduction, elective (Acute) Hx of cholecystectomy (Acute) Family History Family History Other Coronary artery disease Social History Social History Substance History: No History of Abuse Smoking Status: Current every day smoker Tobacco Type: Cigarettes How Often Do You Have a Drink Containing Alcohol: Never Recent Travel in [facility] within the Last 8 Weeks: No Recent Out of Country Travel within the Last 8 Weeks: No Immunization History Tetanus Immunization: Unsure Exam Narrative Exam Narrative: GENERAL: Well-nourished, well-developed patient. SKIN: Focused skin assessment warm/dry. HEAD: Normocephalic. EYES: No scleral icterus. No injection or drainage. NECK: Supple, trachea midline. No JVD or lymphadenopathy. CARDIOVASCULAR: Regular rate and rhythm without murmurs, gallops, or rubs. RESPIRATORY: Breath sounds equal bilaterally. No accessory muscle use. GASTROINTESTINAL: Abdomen soft, non-tender, nondistended. MUSCULOSKELETAL: No cyanosis, or edema. BACK: Nontender without obvious deformity. Left CVA tenderness. Course Initial Documented Vital Signs Temperature 99 F 06/06/18 21:43 Pulse Rate 99 H 06/06/18 21:43 Respiratory Rate 18 06/06/18 21:43 Blood Pressure 126/64 06/06/18 21:43 Pulse Oximetry 98 06/06/18 21:43 Last Documented Vital Signs Temperature 99 F 06/06/18 21:43 Pulse Rate 80 06/06/18 22:16 Respiratory Rate 18 06/06/18 23:09 Blood Pressure 118/68 06/06/18 22:16 Pulse Oximetry 100 06/06/18 22:16 Medical Decision Making MDM Narrative Medical decision making narrative: 38-year-old female with recurrent left flank pain and dysuria for presents for evaluation of possible UTI Labs resulted and ultrasound identifies mild hydronephrosis with 13 mm renal pelvis stone and urinalysis is identified again as abnormal. Review of medical records indicates patient has had urine cultures since February positive for enterococcus Pseudomonas and Klebsiella. Patient now identified to have hydronephrosis. Patient does not have a primary care provider or medical resources. This is fourth visit in 4 months for same. Patient admitted to medicine service for ongoing IV antibiotic management and urology consult. Patient's case discussed with on-call [facility] MD Dr Tapia who will admit observation to her service. Medical Screen Exam Complete: Yes Emergency Medical Condition: Yes Differential Diagnosis Differential Diagnosis: UTI, pyelonephritis, hydronephrosis Medical Records Medical records reviewed: Yes I reviewed the patient's medical records. Lab Data Lab results reviewed: Yes I reviewed the patient's lab results. Result diagrams: 06/06/18 22:10 06/06/18 22:10 POC Results POC Urine Results Negative Lab Results 06/06/18 06/06/18 06/06/18 Range/Units 22:05 22:10 22:10 WBC 5.1 (4.0-11.0) th/mm3 RBC 4.95 (4.00-5.30) mil/mm3 Hgb 13.2 (11.6-15.3) gm/dL Hct 39.3 (35.0-46.0) % MCV 79.4 L (80.0-100.0) fL MCH 26.6 L (27.0-34.0) pg MCHC 33.6 (32.0-36.0) % RDW 13.8 (11.6-17.2) % Plt Count 229 (150-450) th/mm3 MPV 8.3 (7.0-11.0) fL Neut % (Auto) 69.2 (16.0-70.0) % Lymph % (Auto) 19.7 (9.0-44.0) % [place] % (Auto) 9.8 H (0.0-8.0) % Eos % (Auto) 0.7 (0.0-4.0) % Baso % (Auto) 0.6 (0.0-2.0) % Neut # (Auto) 3.5 (1.8-7.7) th/mm3 Lymph # (Auto) 1.0 (1.0-4.8) th/mm3 [place] # (Auto) 0.5 (0.0-0.9) th/mm3 Eos # (Auto) 0.0 (0.0-0.4) th/mm3 Baso # (Auto) 0.0 (0.0-0.2) th/mm3 WBC Differential . Differential Comment Auto diff final Sodium 136 (136-145) meq/L Potassium 3.7 (3.5-5.1) meq/L Chloride 104 (98-107) meq/L Carbon Dioxide 25.4 (21.0-32.0) meq/L Anion Gap 7 (5-15) meq/L BUN 12 (7-18) mg/dL Creatinine 1.06 H (0.50-1.00) mg/dL Estimated GFR 69 L (>89) mL/min Random Glucose 101 (74-106) mg/dL Calcium 9.0 (8.5-10.1) mg/dL Total Bilirubin 0.6 (0.2-1.0) mg/dL AST 16 (15-37) U/L ALT 21 (10-53) U/L Alkaline Phosphatase 94 (45-117) U/L Total Protein 8.4 H (6.4-8.2) g/dL Albumin 3.5 (3.4-5.0) g/dL Lipase 34 L (73-393) U/L Urine Color Noris (Yellw/Straw) Urine Clarity Cloudy H (Clear) Urine pH 6.0 (5.0-8.5) Ur Specific [place] 1.019 (1.002-1.035) Urine Protein 100 H (Neg-Trace) mg/dL Urine Glucose (UA) Negative (Negative) mg/dL Urine Ketones Negative (Negative) mg/dL Urine Occult Blood Moderate H (Negative) Urine Nitrate Positive H (Negative) Urine Bilirubin Negative (Negative) Urine Urobilinogen 4 or greater (Less than 2) mg/dL Ur Leukocyte Esterase Large H (Negative) Urine RBC 155 H (0-3) /hpf Urine WBC (0-5) /hpf Urine WBC Clumps Few H (None) Ur Squamous Epith Cells 1 (0-5) /hpf Urine Bacteria Many H (None) /hpf Urine Mucus Many H (Occasional) /lpf Micro UA Comment Culture indicated Ur Microscopic Review Not Reportable Urine Culture Comments Culture indicated Imaging Data Radiologist's impression: Abdomen/Bladder Ultrasound 06/06/18 21:59 CONCLUSION: 1. 1.4 cm stone left renal pelvis with mild left hydronephrosis. Discharge Plan Discharge Disposition Patient Disposition: 30 Still Patient Discharge Condition Condition: Stable Discharge Details Diagnosis: UTI (urinary tract infection), Hydronephrosis of left kidney, Left nephrolithiasis Physicians Team ED Provider: Kayce Vigil Primary Care Provider: Primary Care Nancy Roberts Attending Provider: Stella Tapia Status ED Status: Admitted Observation Patient
[2018-06-06 22:27] LABS: Baso % (Auto) 0.6 % (0.0-2.0); Eos % (Auto) 0.7 % (0.0-4.0); Hematocrit 39.3 % (35.0-46.0); Hemoglobin 13.2 gm/dL (11.6-15.3); Lymph % (Auto) 19.7 % (9.0-44.0); Mean Corpuscular HGB Conc 33.6 % (32.0-36.0); Mean Corpuscular Hemoglobin 26.6 pg (27.0-34.0); Mean Corpuscular Volume 79.4 fL (80.0-100.0); Mean Platelet Volume 8.3 fL (7.0-11.0); Mono # (Auto) 0.5 th/mm3 (0.0-0.9); Mono % (Auto) 9.8 % (0.0-8.0); Neut # (Auto) 3.5 th/mm3 (1.8-7.7); Neut % (Auto) 69.2 % (16.0-70.0); Platelet Count 229 th/mm3 (150-450); Red Blood Count 4.95 mil/mm3 (4.00-5.30); Red Cell Distribution Width 13.8 % (11.6-17.2); White Blood Count 5.1 th/mm3 (4.0-11.0)
[2018-06-06 22:35] LABS: Bacteria,Urine Many /hpf; Bilirubin,Urine Negative (Negative); Clarity,Urine Cloudy (Clear); Color,Urine Amber (Yellw/Straw); Glucose,Urine (UA) Negative (Negative); Leukocyte Esterase,Urine Large (Negative); Mucus,Urine Many /lpf (Occasional); Nitrite,Urine Positive (Negative); Specific Gravity,Urine 1.019 (1.002-1.035); Squamous Epithelial Cell,Urine 1 /hpf (0-5); Urobilinogen,Urine 4 or Greater mg/dL (Less than 2)
[2018-06-06 22:39] LABS: Albumin 3.5 g/dL (3.4-5.0); Anion Gap 7 meq/L (5-15); Aspartate Aminotransferase 16 U/L (15-37); Blood Urea Nitrogen 12 mg/dL (7-18); Carbon Dioxide 25.4 meq/L (21.0-32.0); Chloride 104 meq/L (98-107); Glomerular Filtration Rate 69 mL/min (>89); Glucose,Random 101 mg/dL (74-106); Lipase 34 U/L (73-393); Potassium 3.7 meq/L (3.5-5.1); Sodium 136 meq/L (136-145)
[2018-06-06 22:42] LABS: Alanine Aminotransferase 21 U/L (10-53); Alkaline Phosphatase 94 U/L (45-117); Total Protein 8.4 g/dL (6.4-8.2)
[2018-06-06] MEDS ORDERED: Morphine Inj 4 MG/ML Vial IV.PUSH ONE (23:01)
--- NOTE | 2018-06-06 23:16 | US ---
EXAM DATE: 06/06/2018 9:59 PM EDT AGE/SEX: 38 years / Female INDICATIONS: Left flank pain. CLINICAL DATA: This is the patient's subsequent encounter. Patient reports that signs and symptoms h ave been present for 7 - 11 months and indicates a pain score of 10/10. MEDICAL/SURGICAL HISTORY: Renal calculi. Cholecystectomy. COMPARISON: [facility] [place], [place] KIDNEY/RENAL/BLADDER, 05/09/2018. . MEASUREMENTS: Right Kidney:__12.0 x 5.6 x 4.0 cm Left Kidney:__12.7 x 6.0 x 5.8 cm FINDINGS: Right Kidney: The right kidney is unremarkable. Left Kidney: There is a large stone in the right renal pelvis measuring 1.4 cm with mild hydronephros is. Bladder: Decompressed. Not well evaluated. Other: None. CONCLUSION: 1. 1.4 cm stone left renal pelvis with mild left hydronephrosis. Electronically signed by: Antoni Lombardi MD 06/06/2018 11:15 PM EDT
[2018-06-07] MEDS ORDERED: Acetaminophen 325 MG Tablet PO PRN (01:23)
[2018-06-07] MEDS ORDERED: Bisacodyl 10 MG Supp RECTAL PRN (01:23)
--- NOTE | 2018-06-07 01:30 | P.HP ---
History of Present Illness Service: [facility] Primary Care Physician: No Primary Care Physician History of Present Illness: 38-year-old female with no significant past medical history presents to the emergency department for evaluation of left-sided pelvic and flank pain. The patient has been to the emergency department 4 times for similar symptoms. She was previously diagnosed with nephrolithiasis and urinary tract infection, prescribed antibiotics and discharged for outpatient follow-up. She has been unable to obtain any outpatient follow-up. She reports that since 04/29 she has had these symptoms and they continue to worsen. Recently she had the addition of subjective fever/chills. She endorses urinary frequency and burning with urination. Denies any hematuria. No chest pain or shortness of breath. No abdominal pain. No nausea/vomiting/diarrhea. Review of Systems All other systems reviewed negative except as stated in HPI PMFSH - History History Provided By: Patient - Medical History Medical History: Medical History (Last Reviewed 06/07/18 @ 01:27 by Stella Tapia MD) Seizure - Surgical History Surgical History: Surgical History (Last Reviewed 06/07/18 @ 01:27 by Stella Tapia MD) Hx of cholecystectomy H/O sinus surgery Hx of breast reduction, elective - Family History Family History: Family History (Last Updated 06/07/18 @ 01:27 by Stella Tapia MD) Other Coronary artery disease - Tobacco History Tobacco Use In Past 30 Days: Yes Smoking Status: Current every day smoker Tobacco Type: Cigarettes - Alcohol History How Often Do You Have a Drink Containing Alcohol: Never - Substance Use History Substance History: No History of Abuse - Travel History Recent Travel in the [facility] Within the Last 8 Weeks: No Recent Travel Out of the Country Within the Last 8 Weeks: No - Immunization History Tetanus Immunization: Unsure Medications and Allergies Active Medications: Active Medications Sodium Chloride (Ns Inj) 1,000 mls @ 0 mls/hr IV.SIG BOLUS JAMAL Last Infusion: 06/07/18 00:28 Dose: Infused Sodium Chloride (Ns Flush) 2 ml IV.FLUSH PRN PRN PRN Reason: FLUSH AFTER USING IV ACCESS Allergies Allergy/AdvReac Type Severity Reaction Status Date / Time No Known Allergies Allergy Verified 06/06/18 21:46 Home Medications Medication Instructions Recorded Confirmed Type No Known Home Medications 06/06/18 06/06/18 History Exam Vital signs: Vital Signs 06/06/18 21:43 06/06/18 22:16 06/06/18 23:09 Temperature 99 F Pulse Rate 99 H 80 Respiratory Rate 18 18 Blood Pressure 126/64 118/68 Pulse Oximetry 98 100 Intake & Output 06/06/18 06/06/18 06/07/18 06:59 18:59 06:59 Intake Total 1100 / 1100 Balance 1100 / 1100 Weight 61.235 kg Intake: IV 1100 / 1100 NS Inj 1,000 ML @ Wide Open IV. 1000 / 1000 SIG BOLUS JAMAL Rx#:[id number] Rocephin Inj 1,000 MG In NS Inj 100 / 100 100 ML @ 200 mls/hr IV.SIG ONCE ONE Rx#:[id number] Narrative: Gen.: No acute distress Head: Normocephalic. Atraumatic. EENT: Pupils equal round and reactive to light. Nose without drainage. Airway intact. Throat without injection. Cardiovascular: Regular rate and rhythm. No murmurs, rubs or gallops. Respiratory: Lungs clear to auscultation bilaterally. No wheezes or rhonchi. Abdomen: Soft, nontender, nondistended. No peritoneal signs. : Pubic tenderness worse on the left. Left-sided CVA tenderness (mild). Musculoskeletal: No gross deformities. No edema. Skin: No obvious rashes or erythema. Neuro: Sensory and motor grossly intact. Cranial nerves II through XII grossly intact. Results - Labs CBC & Chem 7: 06/06/18 22:10 06/06/18 22:10 Labs: Laboratory Results - last 24 hr 06/06/18 06/06/18 06/06/18 22:05 22:10 22:10 WBC 5.1 RBC 4.95 Hgb 13.2 Hct 39.3 MCV 79.4 L MCH 26.6 L MCHC 33.6 RDW 13.8 Plt Count 229 MPV 8.3 Neut % (Auto) 69.2 Lymph % (Auto) 19.7 [place] % (Auto) 9.8 H Eos % (Auto) 0.7 Baso % (Auto) 0.6 Neut # (Auto) 3.5 Lymph # (Auto) 1.0 [place] # (Auto) 0.5 Eos # (Auto) 0.0 Baso # (Auto) 0.0 WBC Differential . Differential Comment Auto diff final Sodium 136 Potassium 3.7 Chloride 104 Carbon Dioxide 25.4 Anion Gap 7 BUN 12 Creatinine 1.06 H Estimated GFR 69 L Random Glucose 101 Calcium 9.0 Total Bilirubin 0.6 AST 16 ALT 21 Alkaline Phosphatase 94 Total Protein 8.4 H Albumin 3.5 Lipase 34 L Urine Color Noris Urine Clarity Cloudy H Urine pH 6.0 Ur Specific [place] 1.019 Urine Protein 100 H Urine Glucose (UA) Negative Urine Ketones Negative Urine Occult Blood Moderate H Urine Nitrate Positive H Urine Bilirubin Negative Urine Urobilinogen 4 or greater Ur Leukocyte Esterase Large H Urine RBC 155 H Urine WBC Urine WBC Clumps Few H Ur Squamous Epith Cells 1 Urine Bacteria Many H Urine Mucus Many H Micro UA Comment Culture indicated Ur Microscopic Review Not Reportable Urine Culture Comments Culture indicated - Imaging Impressions Abdomen/Bladder Ultrasound 06/06/18 21:59 CONCLUSION: 1. 1.4 cm stone left renal pelvis with mild left hydronephrosis. Caprini VTE Risk Assessment Caprini VTE Risk Assessment: No/Low Risk (score <= 1) Caprini Risk Assessment Model: Point Value = 1 Point Value = 2 Point Value = 3 Point Value = 5 Age 41-60 Minor surgery BMI > 25 kg/m2 Swollen legs Varicose veins or History of unexplained or recurrent spontaneous Oral contraceptives or hormone replacement Sepsis (< 1 month) Serious lung disease, including pneumonia (< 1 month) Abnormal pulmonary function Acute myocardial infarction Congestive heart failure (< 1 month) History of inflammatory bowel disease Medical patient at bed rest Age 61-74 Arthroscopic surgery Major open surgery (> 45 min) Laparoscopic surgery (> 45 min) Malignancy Confined to bed (> 72 hours) Immobilizing plaster cast Central venous access Age >= 75 History of VTE Family history of VTE Factor V Leiden Prothrombin [id number] Lupus anticoagulant Anticardiolipin antibodies Elevated serum homocysteine Heparin-induced thrombocytopenia Other congenital or acquired thrombophilia Stroke (< 1 month) Elective arthroplasty Hip, pelvis, or leg fracture Acute spinal cord injury (< 1 month) Prophylaxis Regimen: Total Risk Factor Score Risk Level Prophylaxis Regimen 0-1 Low Early ambulation 2 Moderate Order ONE of the following: *Sequential Compression Device (SCD) *Heparin 5000 units SQ BID 3-4 Higher Order ONE of the following medications: *Heparin 5000 units SQ TID *Enoxaparin/Lovenox 40 mg SQ daily (WT < 150 kg, CrCl > 30 mL/min) *Enoxaparin/Lovenox 30 mg SQ daily (WT < 150 kg, CrCl > 10-29 mL/min) *Enoxaparin/Lovenox 30 mg SQ BID (WT < 150 kg, CrCl > 30 mL/min) AND/OR *Sequential Compression Device (SCD) 5 or more Highest Order ONE of the following medications: *Heparin 5000 units SQ TID (Preferred with Epidurals) *Enoxaparin/Lovenox 40 mg SQ daily (WT < 150 kg, CrCl > 30 mL/min) *Enoxaparin/Lovenox 30 mg SQ daily (WT < 150 kg, CrCl > 10-29 mL/min) *Enoxaparin/Lovenox 30 mg SQ BID (WT < 150 kg, CrCl > 30 mL/min) AND *Sequential Compression Device (SCD) Assessment and Plan - Plan Assessment/plan: 1. UTI/renal stone Ultrasound of the left kidney shows a large stone in the renal pelvis measuring 1.4 cm with mild hydronephrosis UA consistent with urinary tract infection Urine culture pending Rocephin Urology consulted for possible stent placement, appreciate recommendations FEN N.p.o. Electrolytes: Monitor and replete as needed NS at 75 cc/hour
[2018-06-07] MEDS: Morphine Inj 4 MG/ML Vial IV.PUSH PRN ×6 (01:46→21:47)
[2018-06-07] MEDS: Sod Chloride 0.9% Inj 1,000 ML IV.CONT SCH ×2 (05:31→17:20)
[2018-06-07] MEDS: Senna/Docusate Sodium 8.6/50 MG Tablet PO SCH ×2 (08:33→21:47)
--- NOTE | 2018-06-07 11:36 | MB ---
cc: Deon Alex DO DATE: 06/07/2018 HISTORY OF PRESENT ILLNESS: Ms. Trujillo is a 38-year-old female who has been in the ER multiple times with left-sided flank pain on and off. CT scan in February demonstrated a 1.3 cm left lower pole stone. On this admission, she had an ultrasound which showed some mild left hydronephrosis and presence of a left lower pole stone. She has had urinary tract infections recently and has been treated with antibiotics. She has had a history of stones in the past, but has not required surgical intervention for. She has no nausea, vomiting, or diarrhea. Complains of no abdominal pain. No chest pain or shortness of breath. PAST MEDICAL HISTORY: Noted for nephrolithiasis and seizures. PAST SURGICAL HISTORY: Cholecystectomy, sinus surgery, breast reduction. FAMILY HISTORY: Denies any history of nephrolithiasis. There is a history of heart disease. SOCIAL HISTORY: She smokes every day. Does not drink, does not use drugs. MEDICATIONS: Please refer to the chart. ALLERGIES: Please refer to the chart. REVIEW OF SYSTEMS: Left-sided flank pain, left abdominal pain. Denies chest pain, shortness of breath, gait disturbance, bleeding disorders, heat or cold intolerance, skin lesions, bleeding disorders, psychiatric problems. Remaining review of systems were reviewed and were negative. PHYSICAL EXAMINATION: VITAL SIGNS: 97.9, heart rate 50, respiratory rate 18, 125/63. GENERAL: Well-developed, well-nourished, 38-year-old female in no acute distress. HEENT: Normocephalic, atraumatic. Pupils equal, round, regular, and reactive to light. Extraocular movements intact. NECK: Supple. HEART: Regular rate and rhythm. LUNGS: Clear. ABDOMEN: Soft. Left-sided tenderness noted. Some left CVA tenderness noted. EXTREMITIES: No cyanosis, clubbing, or edema. NEUROLOGIC: Cranial nerves 2-12 are intact. LABORATORY DATA: White count is normal at 5.1, hemoglobin 13.2, hematocrit 39.3, platelet count of 229. Sodium 136, potassium 3.7, chloride 104, CO2 25.4. BUN is 12, creatinine 1.0, glucose of 101. Urinalysis shows 155 red cells, few white cell clumps, numerous white cells. Cultures are currently pending. Again, a 1.3 cm left lower pole stone on imaging without evidence of obstruction. Mild hydronephrosis is noted. ASSESSMENT: This is a 38-year-old female with a 1.3 cm left lower pole stone without obstruction and possible pyelonephritis. PLAN: Would recommend continuing IV antibiotics and continue a long course of p.o. antibiotics to prevent recurrent infections, even if it is just suppression. The patient will need to undergo a left extracorporeal shock wave lithotripsy with stent insertion at that time on an outpatient basis. She will also need to be arranged for patient assistance in order for this procedure to be undertaken as it is an outpatient procedure. This was explained at length to the patient at the bedside. Discussed also with the case management team. Given that she is not obstructed at the present time, would not place a stent at this time. Thank you for the consult and allowing me to participate in the care of this patient. DO DAIANA Contreras/gennaro , 11:07 AM , 11:16 AM
--- NOTE | 2018-06-07 11:40 | P.PNADD ---
Addendum to Inpatient Note Reason for Addendum: Additional Documentation Additional information: Patient seen and examined, continues to complain of left flank pain. Dysuria at the end of voiding. No fever. Was seen by Dr. Alex, recommended lithotripsy. Patient is a self-pay. Case management consultation to assist. Urology recommends long course prophylactic antibiotics when discharged to prevent UTI.
[2018-06-07] MEDS ORDERED: HYDROmorphone PF Inj 2 MG/ML Vial IV.PUSH ONE (21:00)
[2018-06-08 00:36] VITALS: BP 119/59; PULSE 54; RESP 16; TEMP 98.1; O2SAT 96
[2018-06-08] MEDS: Morphine Inj 4 MG/ML Vial IV.PUSH PRN ×2 (01:31→05:46)
[2018-06-08] MEDS: Sod Chloride 0.9% Inj 1,000 ML IV.CONT SCH (05:42)
== END 2018-06-08 06:47 | disposition left against medical advice (07) ==
LOC: NEPC 21:40 → NEDA 21:40 → N07 06-07 03:21
PROVIDERS: ADMIT Hospitalist; ATTEND Hospitalist
DX: N13.2 Hydronephrosis with renal and ureteral calculous obstruction; Z90.49 Acquired absence of other specified parts of digestive tract; R56.9 Unspecified convulsions; N39.0 Urinary tract infection, site not specified; Z82.49 Family history of ischemic heart disease and other diseases of the circulatory system; B96.1 Klebsiella pneumoniae [K. pneumoniae] as the cause of diseases classified elsewhere; F17.210 Nicotine dependence, cigarettes, uncomplicated